=== PATIENT | male | born 1990 | race Caucasian/White ===

== ENCOUNTER 2019-02-10 18:49 | Emergency (ER) | payer MEDICAID, OTHER ==
[~2019-02-10] VITALS: Ht 180.3 cm; Wt 90.7 kg
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
[2019-02-10] MEDS ORDERED: IBUPROFEN 600 MG TABLET PO ONE ×2 (19:30→20:17)
[2019-02-10] MEDS ORDERED: LET SOLN TOPICAL 8 ML UDC TP ONE ×2 (19:30→20:17)
[2019-02-10] MEDS ORDERED: TDAP [DIPH/PERTUSSIS/TET] 0.5 ML VIAL IM ONE ×2 (19:30→20:17)
--- NOTE | 2019-02-10 21:03 | NUR ---
Patient is resting comfortably in bed. VSS. NO COMPLAINTS AT THIS TIME. WILL CONT TO MONITOR.
--- NOTE | 2019-02-10 22:48 | NUR ---
CALLED [facility] TO ARRANGE FOR TRANSFER TO [facility] FOR OPTHAMOLOGY MEDSURG BED
--- NOTE | 2019-02-10 23:59 | NUR ---
[facility] CALLED, PER AILYN NO BEDS AVAILABLE.
[2019-02-11] MEDS ORDERED: CEFAZOLIN 1 GM in IV D5W 50 ML IV ONE ×2
[2019-02-11] MEDS ORDERED: CEFTRIAXONE 1GM BAG (ER ONLY) 50 ML IV ONE (00:19)
[2019-02-11] MEDS ORDERED: CEFTRIAXONE 1GM BAG (ER ONLY) 1 GM/50 ML PIGGYBACK IV ONE (00:30)
--- NOTE | 2019-02-11 02:11 | NUR ---
SPOKE TO [facility]. SAID TO FAX OVER CLINICALS.
--- NOTE | 2019-02-11 02:20 | NUR ---
CALLED [facility] FOR MS BED. SAID THEY HAVE NO BEDS AVAIL
[2019-02-11] MEDS ORDERED: LIDOCAINE VISCOUS 2% UD 15 ML UDC ONE (03:25)
--- NOTE | 2019-02-11 05:54 | NUR ---
CALL FROM [facility] TRANSFER [facility]. PT ACCEPTED BY DR BONILLA AT [facility]. # FOR REPORT [phone]
--- NOTE | 2019-02-11 05:58 | NUR ---
CALLED [facility] FOR BLS TRANSPORT TO [facility] TRIP #: [id number] ETA: [id number]
--- NOTE | 2019-02-11 07:15 | NUR ---
REPORT GIVEN TO CATARINA ONEAL FOR CONTINUATION OF CARE.
[2019-02-11 07:30] VITALS: BP 135/78
--- NOTE | 2019-02-11 07:30 | NUR ---
REPORT RECEIVED FROM MAGDA ONAEL FOR [facility]
--- NOTE | 2019-02-11 08:16 | NUR ---
Patient discharged to [facility] in stable condition. Written and verbal after care instructions given. Patient verbalizes understanding of instruction. PT WILL BE TRANSFERRED TO [facility].
== END 2019-02-11 08:12 | disposition short-term general hospital (02) ==
LOC: ER 18:53
DX: S62.620A Displaced fracture of middle phalanx of right index finger, initial encounter for closed fracture (principal); S01.112A Laceration without foreign body of left eyelid and periocular area, initial encounter; S09.8XXA Other specified injuries of head, initial encounter; F10.129 Alcohol abuse with intoxication, unspecified; V49.69XA Unspecified car occupant injured in collision with other motor vehicles in traffic accident, initial encounter; Y93.89 Activity, other specified; Y92.413 State road as the place of occurrence of the external cause; Y99.8 Other external cause status; Y90.9 Presence of alcohol in blood, level not specified
CPT/HCPCS: 29130; 70450; 70486; 72125; 73140; 90471; 90715; 96365; 99285; A6402; J0690; J0696; J7060